=== PATIENT | female | born 1945 | race Caucasian/White ===

== ENCOUNTER 2019-02-18 08:24 | Emergency (ER) | payer OTHER ==
[2019-02-18] MEDS ORDERED: MORPHINE 4 MG/ML SYR ONE ×2 (08:57→09:24)
[2019-02-18] MEDS ORDERED: ONDANSETRON 4 MG/2 ML VIAL ONE (08:57)
[2019-02-18 12:02] LABS: Absolute Lymphocytes (CBC) 0.7 K/uL (0.7-4.9); Basophils % 0.4 % (0-1.3); Hematocrit 41.5 % (36.0-45.0); Lymphocytes % 6.7 % (15.3-44.8); MPV 7.4 fL (7.6-11.3); RBC Red Blood Cell Count 4.28 M/uL (3.86-4.86)
[2019-02-18 12:03] LABS: Bilirubin Direct 0.3 mg/dL (0-0.2); Bilirubin Total 0.8 mg/dL (0.2-1.0); Potassium 3.8 mmol/L (3.5-5.1)
--- NOTE | 2019-02-18 12:14 | RAD REPORT ---
EXAM DESCRIPTION: CT - Stone Protocol - 02/18/2019 12:06 pm CLINICAL HISTORY: Left flank pain, left groin pain COMPARISON: None. TECHNIQUE: Axial 5 mm thick images were obtained without oral or IV contrast. The [id number] span s the entirety of the system including uppermost abdomen and lung bases. All CT scans are performed using dose optimization technique as appropriate and may include automated exposure control or mA/KV adjustment according to patient size. FINDINGS: Mild left-sided hydronephrosis is present secondary to a left UVJ stone. Multiple phleboli ths are seen along the pelvic floor. Bilateral nonobstructing calyx calculi are present 2-5 mm in siz e. Nonspecific perinephric stranding seen. No suspicious renal masses. Isodense masses and pyelonephr itis are not excluded on a stone protocol CT scan. No urinary bladder suspicious finding. No signific ant adrenal finding. Imaged portions of the liver, spleen and pancreas show no suspicious findings on non-contrast imaging . No gallbladder or biliary tree abnormality identified. No suspicious bowel findings. Appendix is normal. Bilateral fat filled inguinal hernias are present. No mass or bulky lymphadenopathy. No free air, rene e fluid or inflammatory stranding. No significant bony abnormality. Due to technical malfunction is with grief counselor system, report could not be generated at the time of the study. Findings were telephoned to the referring physician at the time of the study. IMPRESSION: Mild left-sided hydronephrosis secondary to a 5 mm left UVJ stone. Isodense masses and pyelonephritis are not excluded on stone protocol technique. Patient has bilateral nonobstructing 2-5 mm calculi.
--- NOTE | 2019-02-18 15:03 | ER ---
Nurse's Notes [facility] Name: Jamie Priest Sr Age: 74 yrs Sex: Female : 1945 Arrival Date: 02/18/2019 Time: 08:25 Bed External Waiting Private MD: Diagnosis: Urinary calculus, unspecified Presentation: 02/18 08:29 Presenting complaint: Patient states: left low back pain radiating to left groin that aa5 began last night. Pt reports nausea, denies vomiting. Pt states "I've taken 3 pills of Tylenol #3 since 3am until now and it helped a little bit with the pain". Transition of care: patient was not received from another setting of care. Onset of symptoms was January 2019. Risk Assessment: Do you want to hurt yourself or someone else? Patient reports no desire to harm self or others. Initial Sepsis Screen: Does the patient meet any 2 criteria? No. Patient's initial sepsis screen is negative. Does the patient have a suspected source of infection? No. Patient's initial sepsis screen is negative. Care prior to arrival: None. 08:29 Method Of Arrival: Wheelchair aa5 08:29 Acuity: SOLE 3 aa5 Historical: - Allergies: 08:35 No Known Allergies; aa5 - PMHx: 08:35 Kidney stones; Hypertension; Hyperlipidemia; leg swelling; aa5 - PSHx: 08:35 neck; back; Carpal Tunnel Repair; ankle; elbow; aa5 - Immunization history:: Adult Immunizations up to date. - Social history:: Patient/guardian denies using alcohol, street drugs, The patient lives with family, Smoking status: Patient/guardian denies using tobacco. - Ebola Screening: : No symptoms or risks identified at this time. - Family history:: not pertinent. Screenin:40 Abuse screen: Denies threats or abuse. Nutritional screening: No deficits noted. rb1 Tuberculosis screening: No symptoms or risk factors identified. Fall Risk None identified. Assessment: 08:40 General: Appears uncomfortable, Behavior is calm, cooperative, Denies fever. Pain: rb1 Complains of pain in left low back Pain radiates to left groin Pain currently is 10 out of 10 on a pain scale. Quality of pain is described as sharp, Pain began last night. Neuro: Level of Consciousness is awake, alert, obeys commands, Oriented to person, place, time, situation. Cardiovascular: Capillary refill < 3 seconds is brisk in bilateral fingers. Respiratory: Airway is patent Respiratory effort is even, unlabored, Respiratory pattern is regular, symmetrical. GI: No signs and/or symptoms were reported involving the gastrointestinal system. : No signs and/or symptoms were reported regarding the genitourinary system. Derm: Skin is pink, warm \\T\\ dry. 09:30 Reassessment: Patient appears in no apparent distress at this time. Patient and/or rb1 family updated on plan of care and expected duration. Pain level reassessed. Patient is alert, oriented x 3, equal unlabored respirations, skin warm/dry/pink. Pain 7/10. 10:15 Reassessment: Patient appears in no apparent distress at this time. Patient and/or rb1 family updated on plan of care and expected duration. Pain level reassessed. Patient is alert, oriented x 3, equal unlabored respirations, skin warm/dry/pink. Denies pain at this time. Vital Signs: 08:34 BP 128 / 63; Pulse 57; Resp 20 S; Temp 97.5(O); Pulse Ox 94% on R/A; Pain 10/10; aa5 09:30 BP 138 / 70; Pulse 57; Resp 19; Pulse Ox 95% on R/A; Pain 8/10; rb1 10:30 BP 137 / 71; Pulse 59; Resp 17; Pulse Ox 100% on R/A; Pain 0/10; rb1 ED Course: 08:25 Patient arrived in ED. as 08:29 Arm band placed on. aa5 08:30 Triage completed. aa5 08:40 Patient has correct armband on for positive identification. Bed in low position. Call rb1 light in reach. Side rails up X 1. Pulse ox on. NIBP on. Warm blanket given. Pillow given. 08:41 Miquel Zayas MD is Attending Physician. ma2 09:00 Inserted saline lock: 22 gauge in right antecubital area, using aseptic technique. rb1 Blood collected. 09:06 Debra Mckinney, RN is Primary Nurse. rb1 10:50 No provider procedures requiring assistance completed. IV discontinued, intact, rb1 bleeding controlled, No redness/swelling at site. Pressure dressing applied. Administered Medications: No medications were administered Outcome: 10:33 Discharge ordered by . ma2 10:50 Discharged to home ambulatory, with family. rb1 10:50 Condition: stable 10:50 Discharge instructions given to patient, Instructed on discharge instructions, follow up and referral plans. medication usage, Demonstrated understanding of instructions, follow-up care, medications, Prescriptions given X 2. 11:24 Patient left the ED. Signatures: Darshana Mancilla Audri, RN RN aa5 Vijaya Barba RN RN Debra Mckinney RN RN rb1 Miquel Zayas MD MD ma2 Corrections: (The following items were deleted from the chart) 08:36 08:29 Presenting complaint: Patient states: left low back pain radiating to left groin aa5 that began last night. Pt reports nausea, denies vomiting. aa5 12:30 09:30 Reassessment: Patient appears in no apparent distress at this time. Patient rb1 and/or family updated on plan of care and expected duration. Pain level reassessed. Patient is alert, oriented x 3, equal unlabored respirations, skin warm/dry/pink. rb1 12:30 10:15 Reassessment: Patient appears in no apparent distress at this time. Patient rb1 and/or family updated on plan of care and expected duration. Pain level reassessed. Patient is alert, oriented x 3, equal unlabored respirations, skin warm/dry/pink. rb1
--- NOTE | 2019-02-18 15:03 | EDPHYS ---
Physician Documentation [facility] Name: Jamie Priest Sr Age: 74 yrs Sex: Female : 1945 Arrival Date: 02/18/2019 Time: 08:25 Bed External Waiting Private MD: ED Physician Miquel Zayas HPI: 02/18 10:26 This 74 yrs old Female presents to ER via Wheelchair with complaints of Back ma2 Pain, Abdominal Pain. 10:26 The patient presents with pain that is acute. Onset: The symptoms/episode ma2 began/occurred suddenly, 1 hour(s) ago. Associated signs and symptoms: Pertinent negatives: constipation, hematuria, numbness. Severity of symptoms: At their worst the symptoms were mild, in the emergency department the symptoms are unchanged. The patient has not experienced similar symptoms in the past. Historical: - Allergies: 08:35 No Known Allergies; aa5 - PMHx: 08:35 Kidney stones; Hypertension; Hyperlipidemia; leg swelling; aa5 - PSHx: 08:35 neck; back; Carpal Tunnel Repair; ankle; elbow; aa5 - Immunization history:: Adult Immunizations up to date. - Social history:: Patient/guardian denies using alcohol, street drugs, The patient lives with family, Smoking status: Patient/guardian denies using tobacco. - Ebola Screening: : No symptoms or risks identified at this time. - Family history:: not pertinent. ROS: 10:26 Constitutional: Negative for fever, chills, and weight loss. ma2 10:26 All other systems are negative. Exam: 10:26 Constitutional: This is a well developed, well nourished patient who is awake, alert, ma2 and in no acute distress. Chest/axilla: Normal chest wall appearance and motion. Nontender with no deformity. No lesions are appreciated. Cardiovascular: Regular rate and rhythm with a normal S1 and S2. No gallops, murmurs, or rubs. Normal PMI, no JVD. No pulse deficits. Respiratory: Lungs have equal breath sounds bilaterally, clear to auscultation and percussion. No rales, rhonchi or wheezes noted. No increased work of breathing, no retractions or nasal flaring. Abdomen/GI: Soft, non-tender, with normal bowel sounds. No distension or tympany. No guarding or rebound. No evidence of tenderness throughout. MS/ Extremity: Pulses equal, no cyanosis. Neurovascular intact. Full, normal range of motion. Neuro: Awake and alert, GCS 15, oriented to person, place, time, and situation. Cranial nerves II-XII grossly intact. Motor strength 5/5 in all extremities. Sensory grossly intact. Cerebellar exam normal. Normal gait. Vital Signs: 08:34 BP 128 / 63; Pulse 57; Resp 20 S; Temp 97.5(O); Pulse Ox 94% on R/A; Pain 10/10; aa5 09:30 BP 138 / 70; Pulse 57; Resp 19; Pulse Ox 95% on R/A; Pain 8/10; rb1 10:30 BP 137 / 71; Pulse 59; Resp 17; Pulse Ox 100% on R/A; Pain 0/10; rb1 MDM: 08:41 Patient medically screened. ma2 10:26 Differential diagnosis: Pyelonephritis sprain, Ureterolithiasis. Data reviewed: vital ma2 signs, nurses notes. Counseling: I had a detailed discussion with the patient and/or guardian regarding: the historical points, exam findings, and any diagnostic results supporting the discharge/admit diagnosis, the presence of at least one elevated blood pressure reading (>120/80) during this emergency department visit. Response to treatment: the patient's symptoms have worsened after treatment, [facility] is down, i received verbal report from dr. mcdermott radiologist of 5 mm stone at bladder junction, mild hydronephrosis, patient now has no pain and he likely passed stone into bladder, he will . 10:31 ED course: . ma2 Administered Medications: No medications were administered Disposition: 02/18/19 10:33 Discharged to Home. Impression: Urinary calculus, unspecified. - Condition is Stable. - Discharge Instructions: Kidney Stones, [id number]. - Prescriptions for Tylenol- Codeine #3 300-30 mg Oral Tablet - take 2 tablet by ORAL route every 6 hours As needed; 30 tablet. Flomax 0.4 mg Oral Capsule, Sust. Release 24 hr - take 1 capsule by ORAL route once daily 1/2 hour following the same meal each day; 30 capsule. - Medication Reconciliation Form, Thank You Letter, Antibiotic Education, Prescription Opioid Use form. - Follow up: Private Physician; When: Tomorrow; Reason: Continuance of care. Signatures: Aleena Saha RN RN aa5 Vijaya Barba RN RN ss Debra Mckinney RN RN rb1 Miquel Zayas MD MD ma2 Corrections: (The following items were deleted from the chart) 11:24 10:33 02/18/2019 10:33 Discharged to Home. Impression: Urinary calculus, unspecified. ss Condition is Stable. Forms are Medication Reconciliation Form, Thank You Letter, Antibiotic Education, Prescription Opioid Use. Follow up: Private Physician; When: Tomorrow; Reason: Continuance of care. ma2
[2019-02-18 15:51] VITALS: TEMP 97.5
[2019-02-18 15:52] VITALS: BP 138/70; O2SAT 95
== END 2019-02-18 11:24 | disposition home or self-care (01) ==
LOC: ER 08:24
DX: N20.9 Urinary calculus, unspecified (principal); I10 Essential (primary) hypertension; Z87.442 Personal history of urinary calculi
CPT/HCPCS: 85025; 80048; 36415; 80076; 76377; 74176; 99284; J2405

== ENCOUNTER 2022-05-03 08:40 | Day surgery (SDC) | payer OTHER ==
[2022-04-28 11:05] LABS: Absolute Lymphocytes (CBC) 1.6 K/uL (0.7-4.9); Hematocrit 42.6 % (39.6-49.0); Lymphocytes % 26.2 % (15.3-44.8); MCV 99.1 fL (80-100); MPV 6.7 fL (7.6-11.3)
[2022-04-28 11:14] LABS: Protime INR 1.13
[2022-04-28 11:19] LABS: Potassium 4.5 mmol/L (3.5-5.1)
--- NOTE | 2022-04-28 11:31 | RAD REPORT ---
EXAM DESCRIPTION: RAD - Chest Pa And Lat (2 Views) - 04/28/2022 11:00 am CLINICAL HISTORY: Pre op pending shoulder surgery COMPARISON: No comparisons FINDINGS: Lines: None. Lungs: Mild right middle lobe opacities likely reflecting atelectasis or scarring. Apical scarring. Pleural: No significant pleural effusions or pneumothorax. Cardiac: The heart size is within normal limits. Mediastinum: Within normal limits. Bones: No acute fractures. Other: None IMPRESSION: No acute cardiopulmonary disease.
--- NOTE | 2022-05-01 16:49 | EKG ---
Test Date: 2022-04-28 Test Time: 10:44:18 Crochet Beader: TR MEASUREMENT RESULTS: Intervals: Rate: 57 NJ: QRSD: 80 QT: 422 QTc: 410 Perry: P: NJ: QRS: 47 T: 57 INTERPRETIVE STATEMENTS: Junctional rhythm Abnormal ECG No previous ECG available for comparison Electronically Signed On 05-01-22 16:40:36 [employer]RAF[employer] MARINE by Pardeep Henderson
[2022-05-03] MEDS ORDERED: CEFAZOLIN SODIUM 2 GM/VIAL ONE (09:02)
[2022-05-03] MEDS ORDERED: Ringers Lactate 1,000 ML IV ONE (09:03)
[2022-05-03] MEDS ORDERED: dexAMETHasone 10 MG/ML VIAL ONE (09:58)
[2022-05-03] MEDS ORDERED: LIDOCAINE 1% MPF 5 ML VIAL ONE (09:58)
[2022-05-03] MEDS ORDERED: MIDAZOLAM HCL 2 MG/2 ML INJ ONE (09:59)
[2022-05-03] MEDS ORDERED: FENTANYL CITR 100 MCG/2 ML ONE (09:59)
[2022-05-03] MEDS ORDERED: EPINEPHRINE/PF 1 MG/ML AMP ONE ×2 (09:59→10:29)
[2022-05-03] MEDS ORDERED: ROCURONIUM 50 MG/5 ML VIAL IV ONE (10:38)
[2022-05-03] MEDS ORDERED: propofoL 200 MG/20 ML VIAL IV ONE (10:38)
[2022-05-03] MEDS ORDERED: LIDOCAINE 2% MPF 5 ML VIAL ONE (10:38)
[2022-05-03] MEDS ORDERED: EPHEDRINE SULF 50 MG/ML VIAL ONE (11:20)
--- NOTE | 2022-05-03 12:44 | P.BOP ---
Preoperative diagnosis: right shoulder rotator cuff tear, biceps tendinitis, impingement syndrome Postoperative diagnosis: same, biceps autorupture, SLAP tear Primary procedure: right shoulder arthroscopic rotator cuff repair Secondary procedure: right shoulder arthroscopic SLAP debridement Other procedure(s): right shoulder arthroscopic subacromial decompression Estimated blood loss: 5 cc Specimen: none Findings: see dictation Anesthesia: General Complications: None Implants: Arthrex 5.5 mm corkscrew, 2- 4.75 mm arthrex swivelock Fluids & blood products: per anesthesia record Transferred to: Recovery Room Condition: Good
[2022-05-03] MEDS: HYDROMORPHONE HCL 1 MG/ML INJ ONE ×2 (13:25→13:36)
--- NOTE | 2022-05-03 14:10 | RAD REPORT ---
EXAM DESCRIPTION: RAD - Shoulder 1 View - 05/03/2022 1:44 pm CLINICAL HISTORY: Postop COMPARISON: Chest radiograph 04/28/2022 TECHNIQUE: Single AP view of the right shoulder. FINDINGS: No acute osseous abnormality. No suspicious osseous lesions. Mild AC joint degenerative ch anges. Basal right lung airspace opacity, appears to be new or progressive since the prior exam. IMPRESSION: No acute osseous abnormality of the right shoulder. Basal right lung airspace opacity, appears to be new or progressive since the prior exam.
[2022-05-03] MEDS ORDERED: ALBUTEROL 2.5 MG/3 ML NEB SOL ONE (14:43)
[2022-05-03 14:51] VITALS: BP 162/74; TEMP 97
[2022-05-03 15:26] VITALS: O2SAT 92
== END 2022-05-03 15:24 | disposition home or self-care (01) ==
LOC: OR 08:40
PROVIDERS: ATTEND Orthopaedic Surgery Sports Medicine
PROC: 0RJJ4ZZ Inspection of Right Shoulder Joint, Percutaneous Endoscopic Approach (ICD-10-PCS; principal; 2022-05-03 11:00)
DX: M75.121 Complete rotator cuff tear or rupture of right shoulder, not specified as traumatic (principal); M75.21 Bicipital tendinitis, right shoulder; M75.41 Impingement syndrome of right shoulder
CPT/HCPCS: 36415; 71046; 73020; 80048; 85025; 85610; 85730; 93005; J0171; J1100; J1170; J2001; J2250; J2704; J3010; J7120; J7613